=== PATIENT | female | born 2005 | race Caucasian/White ===

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

== ENCOUNTER 2025-01-28 19:34 | Emergency (ER) | payer BC, SELFPAY ==
--- NOTE | ~2025-01-28 | XR_ITS ---
CLINICAL HISTORY: seizure --- Additional Notes or Special Instructions: Patient not changed @2033 1 view chest x-ray Comparison: None provided Findings: Low lung volumes with minimal atelectasis. No lobar consolidation. No pneumothorax or pleural effusion. Cardiac silhouette and mediastinum accentuated by AP magnification. No acute fracture, by one view chest x-ray. IMPRESSION: Low lung volumes without consolidation This document has been electronically signed by: Jg Sunshine MD on 01/28/2025 21:56:52
--- NOTE | ~2025-01-28 | CT_ITS ---
CLINICAL HISTORY: trauma CT cervical spine without contrast Comparison: None provided Findings: No acute fracture of the cervical spine. Mild reversal of the cervical lordosis. No significant listhesis. No significant osseous spinal stenosis by CT. No paraspinal hematoma. Subcutaneous edema is noted, including dependently. Imaged lung apices are unremarkable accounting for mild artifacts. IMPRESSION: No acute fracture of the cervical spine. This document has been electronically signed by: Jg Sunshine MD on 01/28/2025 22:09:44
--- NOTE | ~2025-01-28 | CT_ITS ---
CLINICAL HISTORY: trauma CT head without contrast Comparison: Head CT from 03/13/2024 Findings: No acute intracranial hemorrhage. No midline shift or hydrocephalus. No arterial territorial infarction by CT. Mucosal thickening and mild fluid of the imaged paranasal sinuses. Imaged mastoid air cells are well aerated. No acute skull fracture. No significant change in mild asymmetry of the parietal bones IMPRESSION: 1. No acute intracranial abnormality by CT. 2. No significant change compared to 03/13/2024 This document has been electronically signed by: Jg Sunshine MD on 01/28/2025 22:15:04
[2025-01-28 19:42] VITALS: BP 136/80; PULSE 88; O2SAT 97
[2025-01-28 19:49] VITALS: BP 114/73; PULSE 83; RESP 20; TEMP 37; O2SAT 97; BMI 27.5
--- NOTE | 2025-01-28 20:00 | ECG_ITS ---
Test Reason : SEIZURE Blood Pressure : */* mmHG Vent. Rate : 79 BPM Atrial Rate : 79 BPM P-R Int : 154 ms QRS Dur : 88 ms QT Int : 368 ms P-R-T Axes : 63 77 38 degrees QTcB Int : 421 ms Normal sinus rhythm Normal ECG When compared with ECG of 13-Mar-2024 22:49, No significant change was found Referred By: Sadaf Blank Electronically Signed By: CESAR CURIEL MD
[2025-01-28 20:02] VITALS: BP 114/67; PULSE 81
[2025-01-28 20:31] LABS: MANUAL DIFF FLAG NO
--- NOTE | 2025-01-28 20:37 | ED.GENADULT ---
HPI - General Adult General Chief complaint: Seizure Stated complaint: Seizure Time Seen by Provider: 01/28/25 20:21 Source: patient and other (roomate) Mode of arrival: EMS History of Present Illness HPI narrative: This is a 19 years old the patient originally from [place] she is a sophomore in [employer] Anita presents by ambulance after an episode of seizure. She is not postictal she is awake and alert no tongue biting no urine incontinence. 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 According to the roommate she was awake during the episode. Onset (ago): hour(s) (1) Radiation: non-radiation Severity: mild Related Data Allergies Allergy/AdvReac Type Severity Reaction Status Date / Time No Known Allergies Allergy Verified 01/28/25 19:50 Review of Systems Constitutional: Constitutional: Reports no additional constitutional complaints Eyes: Eyes: Reports no additional eye complaints Cardiovascular: Cardiovascular: Reports no additional cardiovascular complaints Integumentary/Breasts: Skin/Breast: Reports system reviewed and no additional complaints, except as docu [facility] Past Medical History Attestation statement: The following information was validated with the patient. [facility] Narrative: Pseudo seizure, anxiety depression Social History Social History Alcohol intake: current Alcohol intake frequency: holidays/special occasions only Advance Directives: No Advance Directives Information Provided: No Physical Exam ED Exam Exam: No acute distress awake alert and C-collar placed by the EMS Vital Signs: Vital Signs - 24 hr 01/28/25 19:49 01/28/25 20:02 01/28/25 22:40 Temperature 98.6 F 98.3 F Pulse Rate 83 81 77 Respiratory Rate 20 19 Blood Pressure 114/73 114/67 110/61 Pulse Oximetry 97 99 Oxygen Delivery Method Room Air Room Air BMI result Body Mass Index 27.5 Const General: cooperative Nutritional Appearance: well nourished Orientation/consciousness: patient oriented x3 HENMT Head: Yes normal to inspection Ears: hearing grossly normal bilaterally Face and sinus: Yes normal facial exam Neck Neck: Yes normal visual inspection Resp Effort & Inspection: normal respiratory effort Auscultation: clear to auscultation bilaterally Cardio Jugular venous distension: no JVD Rate: regular rate Rhythm: regular rhythm GI Inspection: Yes normal to inspection Palpation (GI): Soft to palpation, not firm and nontender Neuro General: patient oriented x3 Cranial nerves: Yes CN's II-XII intact bilaterally Motor exam (neuro): 5/5 motor strength present throughout Course Reevaluation(s) Reevaluation #1: On re-examination she is completely asymptomatic at this time neurologically intact workup negative anticipate discharge Time: 22:58 Medications Administered Discontinued Medications Generic Name Dose Route Start Last Admin Trade Name Carlosq PRN Reason Stop Dose Admin Diazepam 2.5 mg 01/28/25 20:36 01/28/25 21:48 Diazepam 10 Mg/2 Ml Cartridge IVPUSH 01/28/25 20:37 2.5 mg STAT STA Administration Sodium Chloride 1,000 mls @ 999 mls/hr 01/28/25 20:45 01/28/25 21:26 Ns IVCONT 01/28/25 21:45 999 mls/hr .Q1H1M INDERJIT Administration Medical Decision Making Medical Decision Making [facility] Narrative: Clinical picture is more consistent with nonepileptic seizure we will check labs anyway we will check head CT and C-spine she is in the C-collar she stated that she fell 22:58 workup completed now head CT C-spine negative labs normal clinical picture is consistent with nonepileptic seizure at this point we will discharge the patient home she is here with a roommate. Differential Diagnosis Differential Diagnoses: The differential diagnosis associated with the presentation includes Nonepileptic seizure/anxiety/seizure Admission/Observation Consideration of admission/observation: Escalation of care including admission/observation considered Lab Data [facility] Lab Attestation statement: I reviewed the patient's lab results. 01/28/25 20:23 01/28/25 20:23 Labs: Lab Results 01/28/25 01/28/25 Range/Units 20:23 21:28 WBC 6.9 (4.8-10.8) X10*3/uL RBC 3.96 L (4.20-5.50) X10*6/uL Hgb 12.0 (12.0-16.0) g/dl Hct 33.3 L (37.0-47.0) % MCV 84.1 (80.0-98.0) fL MCH 30.3 (27.0-33.0) pg MCHC 36.0 H (31.0-35.0) g/dl RDW 11.9 (11.0-16.0) % Plt Count 339 (160-400) X10*3/uL MPV 8.6 L (9.4-12.3) fL Immature Gran % (Auto) 0.1 (0.0-0.4) % Neut % (Auto) 49.6 (45-73) % Lymph % (Auto) 39.2 (20-40) % [place] % (Auto) 9.1 (2-11) % Eos % (Auto) 1.7 (0-4) % Baso % (Auto) 0.3 (0-2) % Lymph # (Auto) 2.7 (1.2-4.9) X10*3/uL [place] # (Auto) 0.6 (0.1-1.2) X10*3/uL Eos # (Auto) 0.1 (0.0-0.4) X10*3/uL Baso # (Auto) 0.0 (0.0-0.2) X10*3/uL Abs Immat Gran (auto) 0.01 (0.00-0.03) X10*3/uL Absolute Neuts (auto) 3.4 (2.0-8.3) x10*3/uL Absolute Nucleated RBC 0.000 (0.0-0.012) X10*3/uL Nucleated RBC % (auto) 0.0 (0.0-0.2) /100WBC Sodium 140 (135-145) mmol/L Potassium 3.4 (3.3-5.1) mmol/L Chloride 108 (96-108) mmol/L Carbon Dioxide 22 (22-29) mmol/L Anion Gap 13 (12-20) BUN 8 L (9-16) mg/dL Creatinine 0.58 (0.5-1.4) mg/dL Estim Creat Clear Calc 152.3 Estimated GFR > 60 Random Glucose 75 (60-115) mg/dL Calcium 8.6 D (8.4-10.2) mg/dL Magnesium 2.1 (1.6-2.6) mg/dL Total Bilirubin 0.2 (0.0-1.0) mg/dL AST 23 (5-31) U/L ALT 18 (0-31) U/L Alkaline Phosphatase 40 (39-117) U/L Troponin I High Sens < 2.7 (<3.5-17.0) ng/L Total Protein 7.2 (6.5-8.0) g/dL Albumin 4.3 (3.5-5.0) g/dL Beta HCG, Quant < 2 mIU/mL Urine Color Yellow Urine Appearance Clear Urine pH 8.0 (5.0-9.0) Ur Specific [place] <= 1.005 (1.005-1.025) Urine Protein Negative (Neg-Trace) mg/dL Urine Glucose (UA) Negative (Negative) mg/dL Urine Ketones Trace (Negative) mg/dL Urine Blood Negative (Negative) Urine Nitrite Negative (Negative) Ur Leukocyte Esterase Trace H (Negative) Urine RBC 0-2 (0-2) /HPF Urine WBC 0-5 (0-5) /HPF Ur Squamous Epith Cells 0-2 (0-2) /HPF Urine Bacteria Trace (None Seen) Hyaline Casts 0-2 (0-2) /LPF COVID-19 (ELVA) Negative (Negative) COVID-19 Clin Com See Note Independent Interpretation I performed an independent interpretation of an: CT Scan Interpretation: Not acute disease Radiology Impression Discussion of test interpretation with radiology: I have reviewed the radiologist's reading. Independent Historian Clinical information obtained from an independent historian. History obtained from or confirmed by: Other Spoke with a roommate Discharge Plan Discharge Clinical Impression: Non-epileptic convulsion Qualifiers: Convulsion type: unspecified Qualified Code(s): R56.9 - Unspecified convulsions Patient Disposition: Home, Self-Care Instructions: Nonepileptic Seizures (DC) Additional Instructions: Follow-up with your neurology returns to the emergency room if you worse your blood work was normal also your CAT scan of the head was normal Print Language: French
[2025-01-28 20:38] LABS: Hematocrit 33.3 % (37.0-47.0); Hemoglobin 12.0 g/dl (12.0-16.0); Imm Gran Abs Auto 0.01 X10*3/uL (0.00-0.03); Imm Gran Pct Auto 0.1 % (0.0-0.4); Lymphocytes Absolute Auto 2.7 X10*3/uL (1.2-4.9); Mean Corpuscular HGB Conc 36.0 g/dl (31.0-35.0); Mean Corpuscular Hemoglobin 30.3 pg (27.0-33.0); Mean Corpuscular Volume 84.1 fL (80.0-98.0); NRBC Abs Auto 0.000 X10*3/uL (0.0-0.012); NRBC Pct Auto 0.0 /100WBC (0.0-0.2); Platelet Count 339 X10*3/uL (160-400); Red Blood Count 3.96 X10*6/uL (4.20-5.50); White Blood Count 6.9 X10*3/uL (4.8-10.8)
--- NOTE | 2025-01-28 20:48 | PC.NURSE ---
Away for imaging. Plan to medicate upon return.
[2025-01-28 20:58] LABS: Alanine Aminotransferase 18 U/L (0-31); Albumin Level 4.3 g/dL (3.5-5.0); Alkaline Phosphatase 40 U/L (39-117); Anion Gap 13 (12-20); Aspartate Amino Transferase 23 U/L (5-31); Blood Urea Nitrogen 8 mg/dL (9-16); Calcium 8.6 mg/dL (8.4-10.2); Carbon Dioxide 22 mmol/L (22-29); Chloride 108 mmol/L (96-108); Creatinine Clr Calc Pharmacy 152.3; Estimated Glomerular Filt Rate > 60; Magnesium 2.1 mg/dL (1.6-2.6); Potassium 3.4 mmol/L (3.3-5.1); Sodium 140 mmol/L (135-145); Total Protein 7.2 g/dL (6.5-8.0)
[2025-01-28 20:59] LABS: COVID-19 Test Negative (Negative); IDNOW Serial# 6674DD1D; Troponin-I High Sensitivity < 2.7 ng/L (<3.5-17.0)
[2025-01-28 21:38] LABS: Appearance Urine Clear; Glucose Urine UA Negative (Negative); PH 8.0 (5.0-9.0); Specific Gravity - Urine <= 1.005 (1.005-1.025); UMIC TRIGGER UACC YES
[2025-01-28] MEDS: diazePAM 10 MG/2 ML CARTRIDGE 2.5 MG IVPUSH (21:48)
--- OUTSIDE RECORDS SUMMARY | 2025-01-28 22:07 | XMS_ITS | Clinical Summary ---
Author Organization [facility] Address [address] [facility] [address] [place] [phone] Phone Care Team Providers Care Concrete Smoother Name Role Phone Monie Beal MD Primary Care Provider [phone] Allergies No known active allergies Medications lurasidone (LATUDA) 20 mg tablet Take 20 mg by mouth daily. Active sertraline (ZOLOFT) 100 MG tablet Take 100 mg by mouth daily. Active norelgestromin-e thinyl estradiol (XULANE,ZAFEMY) 150-35 mcg/[address] 1 patch onto the skin once a week. Active methylphenidate (CONCERTA) 27 MG ER tablet Take 27 mg by mouth every morning. Active esomeprazole (NEXIUM) 40 MG capsule Take 40 mg by mouth daily before breakfast. Active hydrOXYzine (ATARAX) 50 MG tablet Take 50 mg by mouth 3 (three) times a day as needed for itching. Active Social History Tobacco Use Types Packs/Day Years Used Date Smoking Tobacco: Never Smokeless Tobacco: Never Tobacco Cessation:Counseling Given: Not Answered Education Answer Date Recorded Are you interested in more education? Not on alvaro e 06/30/2024 Are you concerned about learning? Not on file 06/30/2024 No 06/30/2024 No 06/30/2024 Digital Access Answer Date Recorded No 06/30/2024 No 06/30/2024 Reliable internet access at home? Not on file 06/30/2024 Device with a working camera? Not on file Intimate Partner Violence Answer Date R ecorded Are you denied basic needs s uch as food, clothing, or medical care? No 09/25/2024 In the past 12 months have y ou been in a relationship with a person who hurts, threatens, or tries to control you? No 09/25/2024 Are you denied basic needs s uch as food, clothing, or medical care? No 09/25/2024 In the past 12 months have y ou been in a relationship with a person who hurts, threatens, or tries to control you? No 09/25/2024 Comments Unknown Sex and Gender Information Value Date Recorded Sex Assigned at Not on file Legal Sex Female 3:03 PM EST Gender Identity Not on file Sexual Orientation Not on file Last Filed Vital Signs Vital Sign Reading Time Taken Comments Blood Pressure 109/75 09/25/2024 11:10 AM EDT Pulse 98 09/25/2024 11:09 AM EDT Temperature 36 C (96.8 F) 09/25/2024 11:09 AM EDT Respiratory Rate 18 09/25/2024 11:09 AM EDT Oxygen Saturation 100% 09/25/2024 11:09 AM EDT Inhaled Oxygen Concentration - - Weight 65.8 kg (145 lb) 09/25/2024 11:09 AM EDT Height 160 cm (5' 3 ) 09/25/2024 11:09 AM EDT Body Mass Index 25.69 09/25/2024 11:09 AM EDT Plan of Treatment Health Maintenance Due Date Last Done Comments MMR VACCINES (1 of 1 - Stand jesus alberto series) 2006 DEVELOPMENTAL/BEHAVIORAL SCR EENING (PHQ, PSC, or SWYC) 2008 COMBINED DTaP,Tdap,Td (1 - Tdap) 2012 DEPRESSION SCREENING 2017 SMOKING Hx and SMOKELESS TOB ACCO SCREENING 2018 VARICELLA VACCINES (1 of 2 - 13+ 2-dose series) 2018 HPV VACCINES (1 - 3-dose series) 2020 CHLAMYDIA SCREENING 2021 MENINGOCOCCAL VACCINES (B) ( 1 of 2 - Standard) 2021 ADOLESCENT UNIVERSAL LIPID SCREENING 2022 HEPATITIS C SCREENING 2023 HIV ONE-TIME SCREENING (18-6 5 YEARS) 2023 HEPATITIS B VACCINES (1 of 3 - 19+ 3-dose series) 2024 INFLUENZA VACCINE (#1) 2024 COVID-19 VACCINE (1 - 2023-2 5 season) 2025 BMI ASSESSMENT 09/25/2025 09/25/2024 HEPATITIS A VACCINES Aged Out No long er eligible based on patient's age to complete this topic HIB VACCINES Aged Out No longer eligi ble based on patient's age to complete this topic MENINGOCOCCAL VACCINES (ACWY) Aged Out No longer eligible based on patient's age to complete this topic PNEUMOCOCCAL VACCINES (0-49 years) Aged Out No longer eligible based on patient's age to complete this topic Medical Devices Not on file Insurance #[facility] [place] [address] [facility] OUT [facility] PPO #[facility] [place] [address] [facility] PPO [place] OUT OF STATE PPO #[facility] [place] [address] [place] OUT OF STATE PPO #[phone] [place] [address] [place] OUT OF STATE PPO #[facility] [place] [address] [employer] [place] OUT OF STATE PPO Care Teams Concrete Smoother Relationship Specialty Start Date End Date Monie Beal MD [address] [place] [id number] [email or web address] PCP - General Family Medicine 06/30/24 Additional Source Comments The information contained in this document represents components of the legal health record. It is not the complete legal health record.[facility]
--- OUTSIDE RECORDS SUMMARY | 2025-01-28 22:07 | XMS_ITS | Encounter Summary ---
Author Organization [facility] Address [address] [facility] [address] [place] [address] Phone Care Team Providers Care Blade Aligner Name Role Phone Monie Beal MD Primary Care Provider [phone] Encounter Details Date Type Department Care Team (Late st Contact Info) Description 09/25/2024 Procedure [facility], Ct Scan - [address] [address] Social History Tobacco Use Types Packs/Day Years Used Date Smoking Tobacco: Never Smokeless Tobacco: Never Education Answer Date Recorded Are you interested [...] on file Sexual Orientation Not on file documented as of this encounter Functional Status * Calculated C-SSRS Risk Score (Lifetime/Recent) Answer Date of Assessment Author No Risk Indicated 09/25/2024 11:09 AM EDT Rohan Queen RN * [place] Suicide Severity Rating Scale (Screener/Recent Self-Report) Question Answer Date of Assessment Author 1. Wish to be (Past 1 Month) No 025 11:09 AM EDT Rohan Queen RN 2. Non-Specific Active Suici sharee Thoughts (Past 1 Month) No 09/25/2024 11:09 AM EDT Rohan Queen RN 6. Suicidal Behavior (Lifetime) No 11:09 AM EDT Rohan Queen RN documented as of this encounter Plan of Treatment Not on file documented as of this encounter Visit Diagnoses Not on filedocumented in this encounter Care Teams Blade Aligner Relationship Specialty Start Date End Date Monie Beal MD [address] [place] [id number] [email or web address] PCP - General Family Medicine 06/30/24 documented as of this encounter Additional Source Comments The information contained in this document represents components of the legal health record. It is not the complete legal health record.[facility]
--- OUTSIDE RECORDS SUMMARY | 2025-01-28 22:07 | XMS_ITS | Clinical Summary ---
Author Organization [facility] [address] [place] [address] [place] [phone] Phone Care Team Providers Care Wine Merchant Name Role Phone Unavailable Primary Care Provider Unavailabl e Social History Tobacco Use Types Packs/Day Years Used Date Smoking Tobacco: Never Assessed Comments Unknown Sex and Gender Information Value Date Recorded Sex Assigned at Not on file Legal Sex Female 3:23 PM EST Gender Identity Not on file Sexual Orientation Not on file Plan of Treatment Health Maintenance Due Date Last Done Comments Gonorrhea/Chlamydia Screening 2005 Varicella Vaccines (1 of 2 - 13+ 2-dose series) 2018 HPV Vaccines (1 - 3-dose series) 2020 Meningococcal B Vaccine (1 o f 2 - Standard) 2021 Annual Well Child Visit (3-2 1 years old) 04/07/2024 HIV Screening 04/07/2024 Hepatitis C Screening 04/07/2024 Social Influencers of Health Screening 04/07/2024 DTaP,Tdap,and Td Vaccines (1 - Tdap) 2024 Hepatitis B Vaccines (1 of 3 - 19+ 3-dose series) 2024 Depression Screening 05/25/2024 COVID-19 Vaccine (1 - 2023-2 5 season) 2025 Influenza Vaccine (#1) 2025 HIB Vaccines Aged Out No longer eligi ble based on patient's age to complete this topic Hepatitis A Vaccines Aged Out No long er eligible based on patient's age to complete this topic IPV Vaccines Aged Out No longer eligi ble based on patient's age to complete this topic MMR Vaccines Aged Out No longer eligi ble based on patient's age to complete this topic Meningococcal ACWY Vaccine Aged Out N o longer eligible based on patient's age to complete this topic Pneumococcal Vaccine: Pediat rics (0 to 5 Years) and At-Risk Patients (6 to 49 Years) Aged Out No longer eligible b ased on patient's age to complete this topic RSV Immunization Patients Un tam 20 months Aged Out No longer eligible b ased on patient's age to complete this topic Insurance [facility]
[2025-01-28 22:40] VITALS: BP 110/61; PULSE 77; RESP 19; TEMP 36.8; O2SAT 99
[2025-01-28 23:23] VITALS: BP 110/61; PULSE 77; RESP 19; TEMP 36.8; O2SAT 99
== END 2025-01-28 23:23 | disposition home or self-care (01) ==
PROVIDERS: Physician Assistant Medical; Emergency Provider Emergency Medicine; PCP General Practice
DX: R56.9 Unspecified convulsions (principal); R51.9 Headache, unspecified; M54.2 Cervicalgia; R11.0 Nausea; F31.9 Bipolar disorder, unspecified; F41.9 Anxiety disorder, unspecified; R10.2 Pelvic and perineal pain; Z79.899 Other long term (current) drug therapy; Z03.818 Encounter for observation for suspected exposure to other biological agents ruled out
CPT/HCPCS: 70450; 71045; 72125; 80053; 81001; 83735; 84484; 84702; 85025; 87635; 93005; 96361; 96374; 99284; J3360

== ENCOUNTER → 2025-01-28 20:00 | Outpatient (BNV) | payer BC, SELFPAY | PROVIDERS: Emergency Provider Emergency Medicine; Visit Provider Radiology Neuroradiology | DX: Z04.3 Encounter for examination and observation following other accident (principal); R56.9 Unspecified convulsions; J98.4 Other disorders of lung | CPT/HCPCS: 70450; 71045; 72125 ==

== ENCOUNTER → 2025-01-28 20:00 | Outpatient (BNV) | payer BC, SELFPAY | PROVIDERS: Emergency Provider Emergency Medicine; PCP General Practice; Visit Provider Internal Medicine Cardiovascular Disease | DX: R56.9 Unspecified convulsions (principal) | CPT/HCPCS: 93010 ==

== ENCOUNTER 2025-04-13 13:48 | Outpatient (AMB) | payer BC, SELFPAY ==
--- OUTSIDE RECORDS SUMMARY | 2025-04-07 19:50 | XMS_ITS | Encounter Summary ---
Author Organization [facility] Address [address] [facility] [address] [place] [address] Phone Care Team Providers Care Living Advisor Name Role Phone Monie Beal MD Primary Care Provider [phone] Reason for Visit * Reason Comments Mass Patient presenting i n office with lump behind left ear above jaw-pain 10- 10. Sxs noted for a few days Encounter Details Date Type Department Care Team (Late st Contact Info) Description 04/07/2025 7:50 PM EST Office Visit [facility] at [address] [address] Susana Carson PA-C [address] [place] [address] [email or web address] Salivary gland infection (Primary Dx) Social History Tobacco Use Types Packs/Day Years [...] on file documented as of this encounter Last Filed Vital Signs Vital Sign Reading Time Taken Comments Blood Pressure 122/85 04/07/2025 7:45 PM EST Pulse 110 04/07/2025 7:45 PM EST Temperature 36.8 C (98.2 F) 04/07/2025 7:45 PM EST Respiratory Rate 20 04/07/2025 7:45 PM EST Oxygen Saturation 98% 04/07/2025 7:45 PM EST Inhaled Oxygen Concentration - - Weight 74.8 kg (165 lb) 04/07/2025 7:45 PM EST Height 154.9 cm (5' 1 ) 04/07/2025 7:45 PM EST Body Mass Index 31.18 04/07/2025 7:45 PM EST documented in this encounter Patient Instructions * Patient Instructions* Susana Carson PA-C - 04/07/2025 7:50 PM EST Take antibiotic as directed. While taking antibiotic, take a probiotic twice a day, at least 2 hours apart from the antibiotic. Keep the probiotic by your bedside and take it first thing in the morning and last thing at night so it does not interfere with the antibiotic. When done with antibiotic, take a probiotic once a day for 1 month. This will help replace the good bacteria that the antibiotic may eradicate. This is important for your immune system as the first line of defense for your immune system begins in your stomach. Use hot packs to your neck. Drink warm fluids. If at all possible, suck on sour candies, sugarless ones are fine. Follow-up with your [facility] service in 3 days. You may return here over the weekend if you are having further symptoms. If you have severe symptoms such as fever, chills, trouble eating or swallowing, drooling or trouble opening mouth, go to the ER. * Attachments The following attachments cannot be sent through Care Everywhere. * Salivary Gland Infection (Northern Irish) documented in this encounter Progress Notes * Susana Carson PA-C - 04/07/2025 7:50 PM EST Images from the original note were not included. Subjective: Patient ID: Tegan Tejada is a 19 y.o. female. Tegan presents noting a lump behind her left ear yesterday. It is painful and now is painful to open her mouth. She denies any upper respiratory symptoms recently or today, she denies fever chills or myalgia. She is a local college student and also works at the [employer] jobs. Review of Systems All other systems reviewed and are negative. Vitals: 04/07/251944 BP: 122/85 BP Location: Left arm Patient Position: Sitting Cuff Size: Medium Pulse: (!) 110 Resp: 20 Temp: 36.8 ??C (98.2 ??F) TempSrc: Oral SpO2: 98% Weight: 74.8 kg (165 lb) Height: 154.9 cm (5' 1 ) Objective: Physical Exam Vitals and nursing note reviewed. Constitutional: General: She is not in acute distress. Appearance: Normal appearance. She is normal weight. She is not ill-appearing. HENT: Head: Normocephalic and atraumatic. Right Ear: External ear normal. Left Ear: External ear normal. Ears: Comments: Bilateral canals shows cerumen. Nose: Nose normal. Mouth/Throat: Mouth: Mucous membranes are moist. Comments: There is pain with depression of the mandible. Eyes: Conjunctiva/sclera: Conjunctivae normal. Pupils: Pupils are equal, round, and reactive to light. Neck: Comments: Tenderness over the left submandibular and parotid glands. There is no fluctuance, discharge or streaking. Cardiovascular: Rate and Rhythm: Normal rate and regular rhythm. Heart sounds: Normal heart sounds. Pulmonary: Effort: Pulmonary effort is normal. Breath sounds: Normal breath sounds. Musculoskeletal: General: Normal range of motion. Cervical back: Normal range of motion and neck supple. No tenderness. Lymphadenopathy: Cervical: No cervical adenopathy. Skin: General: Skin is warm and dry. Neurological: General: No focal deficit present. Mental Status: She is alert. Psychiatric: Mood and Affect: Mood normal. No results found for this visit on 04/07/25. Procedure: Procedures Assessment/Plan: Diagnosis Plan 1. Salivary gland infection Assessment and Plan: Tegan presents with signs and sialadenitis. She is treated with Keflex and symptomatic measures. She is counseled on probiotic use. She is nontoxic and comfortable and verbalized understanding of signs and symptoms requiring further care. documented in this encounter Plan of Treatment Upcoming Encounters Date Type Department Care Team (Late st Contact Info) Description 04/14/2025 2:10 PM EST Office Visit [facility] [address] [place] [address] [place] [address] Arsenio García MD [address] [facility] [address] [place] [address] [email or web address] 11/08/2025 11:00 AM EDT Office Visit [facility] [address] [place] [phone] Makenzie Centeno MD [address] [place] [address] [address] [place] [address] [email or web address] documented as of this encounter Visit Diagnoses Diagnosis Salivary gland infection- Primary Sialoadenitis documented in this encounter Care Teams Living Advisor Relationship Specialty Start Date End Date Monie Beal MD [address] [place] [phone] [email or web address] PCP - General Family Medicine 06/30/24 documented as of this encounter Additional Source Comments The information contained in this document represents components of the legal health record. It is not the complete legal health record.[facility]
--- NOTE | 2025-04-13 13:55 | MHC.OFFVIS ---
Intake Visit Reasons: after 48 hr EEG Allergies No Known Allergies Allergy (Verified 01/28/25 19:50) HPI Comments Details: 19 yo woman with depression and PTSD with suspicion of seizure disorder. She was in ER at [facility] in Feb after she was found to be convulsing. Her jaw felt tight, she had extreme fatigue, and then she shook with eyes rolled back. No injury or incontinence. It has happened a few times, about 5. No warning or aura. Routine EEG at office was ok. She is presenting for follow-up on worsening seizures. The patient also has a recent diagnosis of sleep apnea. The patient describes two types of seizure-like episodes. The first type is characterized by blurry vision, tachycardia, and an inability to speak or scream, followed by full-body convulsions, particularly in the legs, during which the patient remains awake and aware. The second type involves going limp and falling, which has resulted in a concussion from hitting the patient's head at work; the patient reports not remembering these episodes recently. The frequency of these events was daily for months, but has decreased to two or three times a week since starting aripiprazole (Abilify). A 48-hour EEG was performed in January, during which the patient experienced one event, but no associated EEG abnormality was detected. The patient has tried various interventions, including discontinuing magnesium and ADHD medication, exercising, meditating, and has been in cognitive behavioral therapy for five years, with limited effect on the episodes. The patient has been taking antipsychotics and antidepressants since age 11. Current medications include sertraline 125 mg, methylphenidate (Concerta) 27 mg, aripiprazole (Abilify) 2 mg started two weeks ago, famotidine 40 mg, and hydroxyzine 50 mg as needed. The patient was also prescribed hydroxyzine 25 mg twice a day but cannot take it due to excessive somnolence that interferes with work and school. [facility] Social History Alcohol intake: current Alcohol intake frequency: holidays/special occasions only Review of Systems Narrative - Neurological: Reports episodes of seizure-like convulsive movements and episodes of going limp and falling. - Reports an inability to speak or scream during certain events. - Reports history of a concussion. - Psychiatric: Reports feeling anxious and experiencing stress. - Eyes: Reports blurry vision during seizure-like events. - Cardiovascular: Reports heart racing during certain events. - Constitutional: Reports excessive somnolence with hydroxyzine, interfering with daily activities. Physical Exam Neuro Other: Mental Status: Alert and oriented to person, place, and time. Normal attention. Normal spontaneous speech, fluency, and comprehension. No obvious issues with mood and memory. Affect is appropriate. Cranial Nerves: CN II: Visual nation full to confrontation, visual acuity intact. CN III, IV, : Pupils equal, round, reactive to light and accommodation. Extraocular movements are normal. CN V: Facial sensation is normal. CN VII: Facial movements symmetrical. CN VIII: Hearing intact to bedside conversation is normal. CN IX, X: Palate elevates symmetrically. CN XI: Shoulder shrug and head turn symmetrical. CN XII: Tongue midline without atrophy or fasciculations. Extrapyramidal: Full facial expressions and blinking. No rigidity. Movements are appropriate with no tremor or abnormality. Speech: Normal; no dysarthria or tremor. Assessment & Plan Assessment & Plan (1) Psychogenic nonepileptic seizure: Comment: 48 hr EEG at [facility] in Jan 2025: One convulsion w/o EEG abnormality, some right sharp theta during sleep, which is a normal variant CT brain WO at [facility] in Feb 2024: Mild cortical and ant temp atrophy for her age. Routine EEG at [facility] in Jun 2024: OK Code(s): F44.5 - Conversion disorder with seizures or convulsions Category: Medical Plan The patient is a 19-year-old individual presenting with seizure-like events. A 48-hour EEG captured one of the patient's typical spells and showed no epileptiform abnormalities, making an epileptic etiology unlikely. 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 The patient was educated that this condition seems to be a malfunction of signal transmission in the brain, often associated with stress, rather than an electrical discharge like epilepsy. The plan is to send a consult note to the patient's psychiatrist with the diagnosis and recommendations. It was recommended that the patient continue with cognitive behavioral therapy, as it is considered the most appropriate treatment. Pharmacological management should be discussed with and deferred to the psychiatrist. Per guidelines, prescribing antiepileptic drugs will be avoided to prevent giving a misleading diagnosis, though a trial of an AED that also serves as a mood stabilizer was suggested as a possibility for the psychiatrist to consider. The patient was advised to follow up as needed for any changes. Coding Level of Care Code Est Pt Level 4 (88408) Diagnoses Psychogenic nonepileptic seizure F44.5
--- OUTSIDE RECORDS SUMMARY | 2025-04-13 19:17 | XMS_ITS | Clinical Summary ---
Author Organization [facility] Address [address] [facility] [address] [place] [phone] Phone Care Team Providers Care Monitoring Specialist Name Role Phone Monie Beal MD Primary Care Provider [phone] Allergies No known active allergies Medications lurasidone (LATUDA) 20 mg tablet Take 20 mg by mouth daily. Active sertraline (ZOLOFT) 100 MG tablet Take 100 mg by mouth daily. Active norelgestromin -ethinyl estradiol (XULANE,ZAFEMY ) 150-35 mcg/[address] 1 patch onto the skin once a week. Active methylphenidat e (CONCERTA) 27 MG ER tablet Take 27 mg by mouth every morning. Active esomeprazole (NEXIUM) 40 MG capsule Take 40 mg by mouth daily before breakfast. Active hydrOXYzine (ATARAX) 50 MG tablet Take 50 mg by mouth 3 (three) times a day as needed for itching. Active aripiprazole (ABILIFY ORAL) Take by mouth. Active cephalexin (KEFLEX) 500 MG capsule Take 1 capsule (500 mg total) by mouth 3 (three) times a day for 7 days. 21 capsule 5 04/14/20 25 Active cephalexin (KEFLEX) 500 MG capsule Take 1 capsule (500 mg total) by mouth 3 (three) times a day for 7 days. 21 capsule 5 04/07/20 25 Discontinued Active Problems No known active problems Encounters Date Type Department Care Team Description 04/07/2025 7:50 PM EST Office Visit [facility] [address] [address] Susana Carson PA-C Salivary gland infection (Primary Dx) 03/07/2025 Telephone [facility] [address] [place], [place] [id number] Laureen Moreira Visit from Last 3 Months Social History Tobacco Use Types Packs/Day Years [...] Mass Index 31.18 04/07/2025 7:45 PM EST Plan of Treatment Upcoming Encounters Date Type Department Care Team (Late st Contact Info) Description 04/14/2025 2:10 PM EST Office Visit [facility] [address] [place] [address] [place] [address] Arsenio García MD [address] [facility], [address] [place] [address] 11/08/2025 11:00 AM EDT Office Visit [facility] [address] [place] [address] Makenzie Centeno MD [address] [facility], [facility] [address] [place] [address] [email or web address] Health Maintenance Due Date Last Done Comments MMR VACCINES (1 of 1 - Stand jesus alberto series) 2006 DEVELOPMENTAL/BEHAVIORAL SCR EENING (PHQ, PSC, or SWYC) 2008 COMBINED DTaP,Tdap,Td (1 - Tdap) 2012 DEPRESSION SCREENING 2017 VARICELLA VACCINES (1 of 2 - 13+ 2-dose series) 2018 HPV VACCINES (1 - 3-dose series) 2020 CHLAMYDIA SCREENING 2021 MENINGOCOCCAL VACCINES (B) ( 1 of 2 - Standard) 2021 ADOLESCENT UNIVERSAL LIPID SCREENING 2022 HEPATITIS C SCREENING 2023 HIV ONE-TIME SCREENING (18-6 5 YEARS) 2023 HEPATITIS B VACCINES (1 of 3 - 19+ 3-dose series) 2024 INFLUENZA VACCINE (#1) 2024 COVID-19 VACCINE ( - 2024-2 6 season) 2025 BMI ASSESSMENT 04/07/2026 04/07/2025 SMOKING Hx and SMOKELESS TOB ACCO SCREENING 04/07/2026 04/07/2025 HEPATITIS A VACCINES Aged Out No long [...] topic Medical Devices Not on file Insurance [employer] PPO #[id number] [place] [address] [facility] PPO [employer] OUT OF STATE PPO #[id number] [place] [address] [employer] PPO #[id number] [place] [address] [employer] STATE PPO #[id number] [place] [address] [employer] PPO Care Teams Monitoring Specialist Relationship Specialty Start Date End Date Monie Beal MD [address] [place] [phone] [email or web address] PCP - General Family Medicine 06/30/24 Additional Source Comments The information contained in this document represents components of the legal health record. It is not the complete legal health record.[facility]
--- OUTSIDE RECORDS SUMMARY | 2025-04-13 19:17 | XMS_ITS | Encounter Summary ---
Author Organization [facility] Address [address] [facility] [address] [place] [address] Phone Care Team Providers Care Candy Wrapping Machine Operator Name Role Phone Monie Beal MD Primary Care Provider [phone] Encounter Details Date Type Department Care Team (Late st Contact Info) Description 09/25/2024 Procedure Pass [facility], Ct Scan - [address] [address] Social History Tobacco Use Types Packs/Day Years Used Date Smoking Tobacco: Never Smokeless Tobacco: Never Education Answer Date Recorded Are you interested in more education? Not on lavaro e 06/30/2024 Are you concerned about learning? [...] 11:09 AM EDT Rohan Queen RN * [place] Suicide Severity Rating Scale (Screener/Recent Self-Report) Question Answer Date of Assessment Author 1. Wish to be (Past 1 Month) No 025 11:09 AM EDT Rohan Queen RN 2. Non-Specific Active Suici sharee Thoughts (Past 1 Month) No 09/25/2024 11:09 AM EDT Rohan Queen RN 6. Suicidal Behavior (Lifetime) No 11:09 AM EDT Rohan Queen RN documented as of this encounter Plan of Treatment Upcoming Encounters Date Type Department Care Team (Late st Contact Info) Description 04/14/2025 2:10 PM EST Office [facility] [address] [place] [address] [place] [address] Arsenio García MD [address] [place] [address], [address] [place] [address] [email or web address] 11/08/2025 11:00 AM EDT Office Visit [facility] [address] [place] [address] Makenzie Centeno MD [address] [place] [address] [address] [place] [address] [email or web address] documented as of this encounter Visit Diagnoses Not on filedocumented in this encounter Care Teams Candy Wrapping Machine Operator Relationship Specialty Start Date End Date Monie Beal MD [address] [place] [phone] [email or web address] PCP - General Family Medicine 06/30/24 documented as of this encounter Additional Source Comments The information contained in this document represents components of the legal health record. It is not the complete legal health record.[facility]
--- OUTSIDE RECORDS SUMMARY | 2025-04-13 19:17 | XMS_ITS | Encounter Summary ---
Author Organization [facility] Address [address] [facility] [address] [place] [phone] Phone Care Team Providers Care Information Operator Name Role Phone Monie Beal MD Primary Care Provider [phone] Reason for Visit * Reason Onset Date Comments Bridge Visit 03/07/2025 Encounter Details Date Type Department Care Team (Late st Contact Info) Description 03/07/2025 Telephone [facility] [address] [place] [address] Laureen [email or web address] Bridge Visit Social History Tobacco Use Types Packs/Day Years [...] on file documented as of this encounter Progress Notes * Sabra Jorge RN - 03/08/2025 11:01 AM EDT Attempted to collect more information. Left message requesting call back. * Aspen Parnell LPN - 03/07/2025 4:21 PM EDT Left message- return call pending. * Laureen Moreira - 03/07/2025 4:07 PM EDT Patient called in to schedule a NPV. Patient is looking for a bridge visit due to GERD and non epileptic seizures. Patient stated she needs care coordination due to this. Please contact and advise. Central Support Video Game Producer (Please do not reply to this user; this inbox is not monitored.) Thank you. documented in this encounter Plan of Treatment Upcoming Encounters Date Type Department Care Team (Late st Contact Info) Description 04/14/2025 2:10 PM EST Office Visit [facility] [address] [place] [address] [place] [address] Arsenio García MD [address] [place] [address], [address] [place] [address] 11/08/2025 11:00 AM EDT [facility] [address] [address] Makenzie Centeno MD [address] [place] [address] [address] [place] [address] [email or web address] documented as of this encounter Visit Diagnoses Not on filedocumented in this encounter Care Teams Information Operator Relationship Specialty Start Date End Date Monie Beal MD [address] [place] [address] [email or web address] PCP - General Family Medicine 06/30/24 documented as of this encounter Additional Source Comments The information contained in this document represents components of the legal health record. It is not the complete legal health record.[facility]
== END 2025-04-13 14:50 | disposition home or self-care (01) ==
LOC: HO.HSM 13:49
PROVIDERS: PCP General Practice; Visit Provider Psychiatry & Neurology Neurology
DX: F44.5 Conversion disorder with seizures or convulsions (principal)
CPT/HCPCS: 99214